=== PATIENT | female | born 1990 ===

== ENCOUNTER 2022-04-11 15:32 | Emergency (ER) | payer MEDICAID ==
[~2022-04-11] VITALS: Ht 162.6 cm; Wt 49.0 kg
[2022-04-11 15:39] VITALS: BP 117/68
[2022-04-11] MEDS ORDERED: AMOX-117 PO (16:26)
== END 2022-04-11 16:42 | disposition home or self-care (01) ==
LOC: ER 15:33
DX: H66.92 Otitis media, unspecified, left ear (principal); R09.81 Nasal congestion; R07.0 Pain in throat; Z79.2 Long term (current) use of antibiotics
CPT/HCPCS: 99283